=== PATIENT | female | born 1975 | race Caucasian/White ===

== ENCOUNTER 2018-03-16 19:38 | Emergency (ER) | payer BC ==
--- NOTE | 2018-03-16 20:41 | EDM.PDOC ---
ED HPI GENERAL MEDICAL PROBLEM - General Chief Complaint: Respiratory Problem Stated Complaint: 18 WEEKS ,CONGESTION AND LOW ENERGY Time Seen by Provider: 03/16/18 20:21 Source of Information: Reports: Patient History Limitations: Reports: No Limitations - History of Present Illness INITIAL COMMENTS - FREE TEXT/NARRATIVE: 42-year-old female presents for evaluation and treatment of cold symptoms. Patient reports that she has been ill with sinus infection and congestion for several weeks. She was placed on Augmentin. She reports that her symptoms improved with this. she has now completed this and now for about the last 2 weeks she has had a remittance of her symptoms. She reports symptoms of a cough , decreased energy, congestion, ear fullness. She denies any fevers, nausea or vomiting. Patient reports she is about 18 weeks . She is a . 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 Last visit was in February. She is scheduled an ultrasound done on 04 of April. She reports that she's been having some abdominal cramping throughout her entire abdomen. No pelvic pain. No vaginal bleeding. She does feel that she has appreciated decreased movement. She denied complications with the thus far. - Related Data Home Meds: Home Meds Azithromycin [Zithromax] 250 mg PO DAILY #6 tab 03/16/18 [Rx] ED ROS GENERAL - Review of Systems Review Of Systems: See Below Constitutional: Reports: Malaise, Fatigue. Denies: Fever HEENT: Reports: Other (Reports congestion) Respiratory: Reports: Cough GI/Abdominal: Denies: Nausea, Vomiting : Reports: Other (No pelvic pain. No vaginal bleeding. Reports decreased movement). Denies: Dysuria, Pain ED EXAM, GENERAL - Physical Exam Exam: See Below Exam Limited By: No Limitations General Appearance: Alert, WD/WN, No Apparent Distress Nose: Normal Inspection Throat/Mouth: Normal Inspection, Normal Lips, Normal Voice, No Airway Compromise Neck: Normal Inspection Respiratory/Chest: No Respiratory Distress, Lungs Clear, Normal Breath Sounds Cardiovascular: Normal Peripheral Pulses, Regular Rate, Rhythm, No Murmur (Female) Exam: Deferred, Other ( heart tones 155 bpm ) Neurological: Alert, Oriented Psychiatric: Normal Affect, Normal Mood Skin Exam: Warm, Dry, Normal Color Course - Orders/Labs/Meds Labs: Laboratory Tests 02/06/19 Range/Units 20:06 Urine Color Yellow (Yellow) Urine Appearance Clear (Clear) Urine pH 7.0 (5.0-8.0) Ur Specific [place] 1.020 (1.005-1.030) Urine Protein Negative (Negative) Urine Glucose (UA) Negative (Negative) Urine Ketones Trace H (Negative) Urine Occult Blood Negative (Negative) Urine Nitrite Negative (Negative) Urine Bilirubin Negative (Negative) Urine Urobilinogen 0.2 (0.2-1.0) Ur Leukocyte Esterase Negative (Negative) Urine RBC 0-5 (0-5) /hpf Urine WBC 0-5 (0-5) /hpf Ur Epithelial Cells 0-5 (0-5) /hpf Urine Bacteria Occasional (FEW) /hpf Urine Mucus Not seen (FEW) /hpf - Re-Assessments/Exams Free Text/Narrative Re-Assessment/Exam: 03/16/18 21:40 Influenza is negative. Educated given how early she is in her it is not uncommon to not appreciate movement for several days in a row. Recommend follow-up with Ob. Without any significant pain or vaginal bleeding I see no reason for an emergent ultrasound tonight. heart tones are 155 bpm. Patient reports generalized abdominal pain but states this has been going on for quite some time. She has brought this to the attention of her ob. Will treat for sinusitis with a zpak due to the limited options with her being . Will discharge home at this time. Discharge instructions as documented. Departure - Departure Time of Disposition: 21:42 Disposition: Home, Self-Care 01 Condition: Good Clinical Impression: Sinusitis - Discharge Information *PRESCRIPTION DRUG MONITORING PROGRAM REVIEWED*: No *COPY OF PRESCRIPTION DRUG MONITORING REPORT IN PATIENT MEDARDO: No Prescriptions: Azithromycin [Zithromax] 250 mg PO DAILY #6 tab Instructions: Sinusitis, Adult Referrals: PCP,None [Primary Care Provider] - Forms: ED Department Discharge Additional Instructions: Azithromycin as prescribed. 2 tabs on day 1 followed by 1 tablet on days 2 through 5 for 5 days of antibiotic total. Follow-up with your OB as needed. Make sure you are drinking plenty of fluids. Rest. may take [id number] Tylenol as needed for discomfort. A list of medications that is okay during is also been provided for you. Please return to the ER if your symptoms change or worsen.
== END 2018-03-16 21:57 | disposition home or self-care (01) ==
LOC: JD.ED 19:38
DX: O99.512 Diseases of the respiratory system complicating pregnancy, second trimester (principal); J32.9 Chronic sinusitis, unspecified; Z3A.18 18 weeks gestation of pregnancy
CPT/HCPCS: 81001; 87804; 99283

== ENCOUNTER 2018-04-18 21:39 | Emergency (ER) | payer BC ==
--- NOTE | 2018-04-18 21:50 | EDM.PDOC ---
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 This started around 10:00 this morning she's thrown up 6 times today she has not had any appetite and has not been able to keep anything down. She is a 3 para 22 prior pregnancies ended full term no complications. She has some intermittent discomfort not really cramping or contractions. She denies fevers or chills Abdomen Pain Score (Numeric/FACES): 10 - Related Data Allergies Allergy/AdvReac Type Severity Reaction Status Date / Time No Known Allergies Allergy Verified 04/18/18 21:51 Home Meds: Home Meds Citalopram [Citalopram HBr] 04/18/18 [History] Pantoprazole Sodium 04/18/18 [History] ED ROS GENERAL - Review of Systems Review Of Systems: See Below Constitutional: Reports: No Symptoms HEENT: Reports: No Symptoms Respiratory: Reports: No Symptoms Cardiovascular: Reports: No Symptoms Endocrine: Reports: No Symptoms GI/Abdominal: Reports: Abdominal Pain, Nausea, Vomiting. Denies: Constipation, Diarrhea : Reports: No Symptoms. Denies: Discharge Skin: Reports: No Symptoms Neurological: Reports: No Symptoms Psychiatric: Reports: No Symptoms Hematologic/Lymphatic: Reports: No Symptoms Immunologic: Reports: No Symptoms ED EXAM - Physical Exam Exam: See Below Exam Limited By: No Limitations General Appearance: Alert, No Apparent Distress Head: Atraumatic, Normocephalic Neck: Normal Inspection, Supple, Non-Tender, Full Range of Motion Respiratory/Chest: No Respiratory Distress, Lungs Clear, Normal Breath Sounds Cardiovascular: Regular Rate, Rhythm, No Edema, No Murmur GI/Abdominal Exam: Normal Bowel Sounds, Soft, Other (Fundal height is just at the umbilicus heart tones are audible with 148 bpm) Heart Tones: Present Heart Tones per Min: 148 Back Exam: Normal Inspection. No: CVA Tenderness (L), CVA Tenderness (R) Extremities: Normal Inspection, Normal Range of Motion, Non-Tender, No Pedal Edema Course - Vital Signs Last Recorded V/S: Last Vital Signs Temp 36.9 C 04/18/18 21:48 Pulse 110 H 04/18/18 21:48 Resp 18 04/18/18 21:48 BP 102/75 04/18/18 21:48 Pulse Ox 100 04/18/18 21:48 - Orders/Labs/Meds Labs: Laboratory Tests 04/18/18 04/18/18 04/18/18 Range/Units 22:14 22:15 22:15 WBC 10.10 H (3.98-10.04) K/mm3 RBC 4.16 (3.98-5.22) M/mm3 Hgb 12.9 (11.2-15.7) gm/L Hct 37.5 (34.1-44.9) % MCV 90.1 (79.4-94.8) fl MCH 31.0 (25.6-32.2) pg MCHC 34.4 (32.2-35.5) g/dl RDW Std Deviation 41.5 (36.4-46.3) fL Plt Count 239 (182-369) K/mm3 MPV 9.7 (9.4-12.3) fl Neutrophils % (Manual) 93 H (40-60) % Band Neutrophils % 0 (0-10) % Lymphocytes % (Manual) 6 L (20-40) % Atypical Lymphs % 0 % Monocytes % (Manual) 1 L (2-10) % Eosinophils % (Manual) 0 L (0.7-5.8) % Basophils % (Manual) 0 L (0.1-1.2) Platelet Estimate Adequate RBC Morph Comment Normal Sodium 136 (136-145) mEq/L Potassium 3.5 (3.5-5.1) mEq/L Chloride 103 (98-107) mEq/L Carbon Dioxide 21 (21-32) mEq/L Anion Gap 15.5 H (5-15) BUN 9 (7-18) mg/dL Creatinine 0.6 (0.55-1.02) mg/dL Est Cr Clr Drug Dosing TNP Estimated GFR (MDRD) > 60 (>60) mL/min BUN/Creatinine Ratio 15.0 (14-18) Glucose 97 (74-106) mg/dL Calcium 8.3 L (8.5-10.1) mg/dL Total Bilirubin 0.5 (0.2-1.0) mg/dL AST 14 L (15-37) U/L ALT 19 (14-59) U/L Alkaline Phosphatase 82 (46-116) U/L Total Protein 6.5 (6.4-8.2) g/dl Albumin 2.9 L (3.4-5.0) g/dl Globulin 3.6 gm/dL Albumin/Globulin Ratio 0.8 L (1-2) Urine Color Yellow (Yellow) Urine Appearance Clear (Clear) Urine pH 5.5 (5.0-8.0) Ur Specific [place] > or = 1.030 (1.005-1.030) Urine Protein 1+ H (Negative) Urine Glucose (UA) Negative (Negative) Urine Ketones 3+ H (Negative) Urine Occult Blood Negative (Negative) Urine Nitrite Negative (Negative) Urine Bilirubin 1+ H (Negative) Urine Urobilinogen 0.2 (0.2-1.0) Ur Leukocyte Esterase Negative (Negative) Urine RBC 0-5 (0-5) /hpf Urine WBC 0-5 (0-5) /hpf Ur Epithelial Cells 0-5 (0-5) /hpf Urine Bacteria Few (FEW) /hpf Urine Mucus Few (FEW) /hpf Meds: Medications Discontinued Medications Generic Name Dose Route Start Last Admin Trade Name Jose De Jesus PRN Reason Stop Dose Admin Lactated Ringer's 1,000 mls @ 999 mls/hr 04/18/18 21:58 04/18/18 22:12 Ringers, Lactated IV 04/18/18 22:58 999 mls/hr .BOLUS ONE Administration Ondansetron HCl 4 mg 04/18/18 21:59 04/18/18 22:12 Zofran IVPUSH 04/18/18 22:00 4 mg ONETIME ONE Administration - Re-Assessments/Exams Free Text/Narrative Re-Assessment/Exam: 04/18/18 23:23 Sensorium what she thinks may be cramping and contractions despite IV fluids labs reviewed the patient will be transferred to L&D for further supervision evaluation and workup Departure - Departure Time of Disposition: 23:24 Disposition: Refer to Observation Clinical Impression: Nausea & vomiting, related abdominal pain of lower quadrant, antepartum - Discharge Information Referrals: PCP,Not In Area [Primary Care Provider] - Forms: ED Department Discharge
[2018-04-18] MEDS ORDERED: Lactated Ringers 1,000 ML IV ONE (21:58)
[2018-04-18] MEDS ORDERED: Ondansetron 4 MG/2 ML SDV IVPUSH ONE (21:59)
== END 2018-04-19 | disposition other institution (70) ==
LOC: JD.ED 21:39
DX: O21.9 Vomiting of pregnancy, unspecified (principal); Z3A.23 23 weeks gestation of pregnancy
CPT/HCPCS: 36415; 80053; 81001; 85007; 85027; 96361; 96374; 99284; J2405; J7120; 96360; A9270-GY; C9113; J7042

== ENCOUNTER 2022-11-02 05:02 | Emergency (ER) | payer BC ==
[2022-11-02] MEDS ORDERED: Acetaminophen/oxyCODONE 325-5 MG Tab PO ONE (05:34)
[2022-11-02] MEDS ORDERED: Ketorolac 30 MG/ML SDV IVPUSH SCH (05:45)
== END 2022-11-02 06:27 | disposition home or self-care (01) ==
LOC: JD.ED 05:02
DX: R07.89 Other chest pain (principal); J02.9 Acute pharyngitis, unspecified
CPT/HCPCS: 71045; 93005; 96374; 99285; A9270; J1885; 93010; 99284